=== PATIENT | male | born 1980 | race Two or more races ===

== ENCOUNTER 2024-04-29 16:42 | Emergency (ER) | payer BC, OTHER ==
[~2024-04-29] VITALS: Ht 167.6 cm; Wt 100.0 kg
[2024-04-29] MEDS ORDERED: IBUP-1456 PO (21:17)
[2024-04-29] MEDS ORDERED: METH-1181 PO (21:17)
[2024-04-29 22:15] VITALS: BP 124/66; PULSE 66; RESP 17; TEMP 97.9; O2SAT 95
== END 2024-04-29 22:20 | disposition home or self-care (01) ==
LOC: EDBD 16:42 → ER 16:42
DX: S30.1XXA Contusion of abdominal wall, initial encounter (principal); S50.12XA Contusion of left forearm, initial encounter; S50.811A Abrasion of right forearm, initial encounter; V89.2XXA Person injured in unspecified motor-vehicle accident, traffic, initial encounter; Y93.89 Activity, other specified; Y92.89 Other specified places as the place of occurrence of the external cause; Y99.8 Other external cause status
CPT/HCPCS: 73090; 74176